=== PATIENT | female | born 1955 | race Caucasian/White ===

== ENCOUNTER → 2017-06-25 | Outpatient (CLI) | payer BC | LOC: MC.RAD 09:17 | DX: Z12.31 Encounter for screening mammogram for malignant neoplasm of breast (principal) ==

== ENCOUNTER → 2018-08-09 | Outpatient (CLI) | payer MEDICARE, BC | LOC: MC.RAD 07:17 | DX: Z12.31 Encounter for screening mammogram for malignant neoplasm of breast (principal) ==

== ENCOUNTER → 2019-09-12 | Outpatient (CLI) | payer MEDICARE, BC | LOC: MC.RAD 07:05 | DX: Z12.31 Encounter for screening mammogram for malignant neoplasm of breast (principal) ==

== ENCOUNTER → 2020-09-13 | Outpatient (CLI) | payer MEDICARE, BC | LOC: MC.RAD 06:56 | DX: Z12.31 Encounter for screening mammogram for malignant neoplasm of breast (principal) ==

== ENCOUNTER 2021-09-03 14:43 | Outpatient (CLI) | payer MEDICARE, BC ==
[~2021-09-03] VITALS: Ht 175.3 cm; Wt 70.9 kg
[2021-09-03] MEDS ORDERED: ZOCOR 20MG20 MG PO (15:00)
[2021-09-03 15:14] VITALS: BP 122/79; PULSE 61; TEMP 98.3
[2021-09-03] MEDS ORDERED: ZOLOFT 25MG25 MG PO (15:22)
[2021-09-03] MEDS ORDERED: COZAAR 50MG50 MG/TAB PO (15:22)
[2021-09-03] MEDS ORDERED: ASPIRIN E.C. 8181 MG PO (15:23)
[2021-09-03] MEDS ORDERED: PROTONIX20 MG PO (15:23)
[2021-09-03] MEDS ORDERED: [UNRECOGNIZED DRUG - OTHER] PO (15:23)
[2021-09-03] MEDS ORDERED: ONE-A-DAY ESSE1 EACH PO (15:24)
[2021-09-03] MEDS ORDERED: EPA FISH OIL1 SGL PO (15:24)
[2021-09-03] MEDS ORDERED: MASON NATURAL2000 IU PO (15:24)
--- NOTE | 2021-09-03 15:50 | NUR ---
Pt escorted out to elevator following 30 min observation period following initial prolia injection. She denies complaints. Gait steady.
== END 2021-09-03 15:56 | disposition home or self-care (01) ==
LOC: EUO 14:43
DX: M85.88 Other specified disorders of bone density and structure, other site (principal)
CPT/HCPCS: J0897

== ENCOUNTER → 2021-10-07 | Outpatient (CLI) | payer MEDICARE, BC ==
[~2021-10-07] MED LIST: ASPIRIN E.C. 8181 MG PO; COZAAR 50MG50 MG/TAB PO; EPA FISH OIL1 SGL PO; MASON NATURAL2000 IU PO; ONE-A-DAY ESSE1 EACH PO; PROTONIX20 MG PO; ZOCOR 20MG20 MG PO; ZOLOFT 25MG25 MG PO; [UNRECOGNIZED DRUG - OTHER] PO
== END ==
LOC: MC.RAD 10:01
DX: Z12.31 Encounter for screening mammogram for malignant neoplasm of breast (principal)

== ENCOUNTER 2022-03-04 14:43 | Outpatient (CLI) | payer MEDICARE, BC ==
[~2022-03-04] VITALS: Ht 175.3 cm; Wt 70.9 kg
[2022-03-04 15:00] VITALS: BP 117/71; PULSE 64; TEMP 97.5
[2022-03-04] MEDS ORDERED: PRILOSEC 20MG20 MG PO (15:34)
== END 2022-03-04 15:36 | disposition home or self-care (01) ==
LOC: EUO 14:43
DX: M81.0 Age-related osteoporosis without current pathological fracture (principal)
CPT/HCPCS: J0897

== ENCOUNTER 2022-09-15 13:49 | Outpatient (CLI) | payer MEDICARE, BC ==
[~2022-09-15] VITALS: Ht 175.3 cm; Wt 71.0 kg
[~2022-09-15 13:49] MED LIST changes: +PRILOSEC 20MG20 MG PO
[2022-09-15 14:03] VITALS: BP 102/64; PULSE 87
== END 2022-09-15 14:50 ==
LOC: EUO 13:49
DX: M81.0 Age-related osteoporosis without current pathological fracture (principal)
CPT/HCPCS: J0897

== ENCOUNTER → 2022-12-19 | Outpatient (CLI) | payer MEDICARE, BC | LOC: MC.RAD 12-04 10:00 | DX: Z12.31 Encounter for screening mammogram for malignant neoplasm of breast (principal) ==

== ENCOUNTER 2024-04-14 14:56 | Outpatient (CLI) | payer MEDICARE, BC ==
[~2024-04-14] VITALS: Ht 175.3 cm; Wt 72.9 kg
[~2024-04-14 14:56] MED LIST changes: +PROTONIX 40MG T40 MG PO
[2024-04-14] MEDS ORDERED: Denosumab 60 MG/ML SYRINGE SQ ONE (15:15)
[2024-04-14 15:23] VITALS: BP 122/67; PULSE 56; TEMP 97.9
== END 2024-04-14 15:36 ==
LOC: EUO 14:56
DX: M81.0 Age-related osteoporosis without current pathological fracture (principal)
CPT/HCPCS: J0897